=== PATIENT | female | born 1990 | race American Indian/Alaskan Native ===

== ENCOUNTER 2022-03-10 00:08 | Emergency (ER) | payer MEDICAID, OTHER ==
[2022-03-10 00:11] VITALS: BP 132/78
--- NOTE | 2022-03-11 14:39 | Electrocardiograph Report ---
[facility] Test Date: 2022-03-10 Test Time: 00:13:19 Pat Name: BOB KIM Department: Room: Gender: F [employer]: CESILIA : 1990 Requested By: ED DOC Order Number: [id number] Reading MD: Bishop Smallwood Measurements Intervals [place] Rate: 79 P: 44 UT: 130 QRS: 53 QRSD: 84 T: 18 QT: 375 QTc: 431 Interpretive Statements Sinus rhythm No previous ECG available for comparison Electronically Signed On 03-11-2022 14:39:02 EDT by Bishop Smallwood
== END 2022-03-10 08:15 | disposition left against medical advice (07) ==
LOC: ED 00:08
DX: M54.9 Dorsalgia, unspecified (principal); R07.9 Chest pain, unspecified; Z53.21 Procedure and treatment not carried out due to patient leaving prior to being seen by health care provider
CPT/HCPCS: 93005